=== PATIENT | female | born 1975 | race Caucasian/White ===

== ENCOUNTER 2016-08-11 18:30 | Emergency (ER) | payer OTHER ==
[~2016-08-11] VITALS: Ht 162.6 cm; Wt 118.1 kg
[~2016-08-11 18:30] MED LIST: COLACE100 MG PO; NOHOMEMEDS; ULTRAM50 MG PO
[2016-08-11 19:34] LABS: EOSINOPHIL (%) 0.7 % (0-5); EOSINOPHIL COUNT 0.1 K/uL (0-0.3); HEMATOCRIT 41.2 % (36.0-46.0); IMMATURE GRANULOCYTE (%) 0.4 % (0.0-0.7); INSTRUMENT ABS NEUTROPHIL CT 5.3 K/uL; LYMPHOCYTE COUNT 3.6 K/uL (1.0-2.8); MCH 28.9 PG (29.0-34.0); MCHC 33.5 G/DL (30.0-36.0); MCV 86.2 FL (83-99); MEAN PLAT.VOLUME 11.6 uM^3 (9.5-12.4); MONOCYTE (%) 5.9 % (3-12); MONOCYTE COUNT 0.6 K/uL (0-0.8); NEUTROPHIL (%) 55.3 % (45-76); NEUTROPHIL COUNT 5.3 K/uL (1.8-6.4); PLATELET COUNT 273 K/uL (156-360); RBC DIS.WIDTH-CV 13.7 % (11.8-14.6); RBC DIS.WIDTH-SD 42.2 % (39-53); RED BLOOD COUNT 4.78 M/uL (3.80-5.20); WHITE BLOOD COUNT 9.6 K/uL (4.1-10.2)
[2016-08-11 19:47] LABS: CHLORIDE 109 mEq/L (99-109); POTASSIUM 4.7 mEq/L (3.7-5.4); SODIUM 140 mEq/L (136-147)
[2016-08-11 19:49] LABS: GLUCOSE 81 mg/dL (70-99)
[2016-08-11 19:50] LABS: ANION GAP 10 MEQ/L (2-14)
[2016-08-11 19:53] LABS: GFR ESTIMATE (CALCULATED) > 59 mL/min/
[2016-08-11 19:54] LABS: UREA NITROGEN (BUN) 10 mg/dL (9-23)
[2016-08-11 20:01] LABS: QUANTITATIVE HCG 348.3 MIU/ML
[2016-08-11 20:05] LABS: ADD MIUA? YES; BILIRUBIN NEGATIVE; BLOOD NEGATIVE; COLOR YELLOW ((YELLOW)); GLUCOSE (STRIP) NEGATIVE; KETONES 5; LEUKOCYTES MODERATE; NITRITE NEGATIVE; PROTEIN (STRIP) NEGATIVE; SPECIFIC GRAVITY 1.028 (1.000-1.030)
[2016-08-11 20:19] LABS: BACTERIA RARE /HPF; CALCIUM OXALATE CRYSTALS 4+ /HPF; EPITHELIAL CELLS 1+ /HPF; MUCUS TRACE /LPF; RED BLOOD CELLS 0-5 /HPF (0-5); WHITE BLOOD CELLS NONE SEEN /HPF (0-5)
[2016-08-11] MEDS ORDERED: MOTRIN600 MG PO (22:09)
[2016-08-11] MEDS ORDERED: NORCO 7.5/321 TABLET PO (22:09)
[2016-08-11 23:02] VITALS: BP 118/65
== END 2016-08-11 23:03 | disposition home or self-care (01) ==
LOC: EME 18:30
PROVIDERS: Physician Assistant
DX: R10.2 Pelvic and perineal pain (principal); R79.89 Other specified abnormal findings of blood chemistry; Z98.51 Tubal ligation status; K21.9 Gastro-esophageal reflux disease without esophagitis; Z87.442 Personal history of urinary calculi; Z88.0 Allergy status to penicillin
CPT/HCPCS: 76801; 80048; 81003; 84702; 85025; 99281; 99285; J3010; J7030